=== PATIENT | female | born 1995 | race Hispanic/Latino ===

== ENCOUNTER 2021-05-14 11:08 | Emergency (ER) | payer OTHER ==
[2021-05-14 12:25] LABS: Absolute Lymphocytes (CBC) 1.7 K/uL (0.7-4.9); Basophils % 0.7 % (0-1.3); Hematocrit 37.2 % (36.0-45.0); Lymphocytes % 18.3 % (15.3-44.8); MPV 7.8 fL (7.6-11.3); RBC Red Blood Cell Count 4.13 M/uL (3.86-4.86)
[2021-05-14 12:35] LABS: Urine Blood Negative (Negative); Urine Glucose Negative (Negative); Urine Protein Negative (Negative); Urine Specific Gravity 1.025 (1.005-1.030)
[2021-05-14 12:43] LABS: BUN Blood Urea Nitrogen 8 mg/dL (7-18); Bicarbonate 25 mmol/L (21-32); Glucose Level 90 mg/dL (74-106); HCG, Quantitative < 1 mIU/mL (1-3); Sodium Level 138 mmol/L (136-145)
[2021-05-14 12:48] LABS: Urine Specific Gravity/Preg 1.025 (1.005-1.030)
--- NOTE | 2021-05-14 13:16 | RAD REPORT ---
EXAM DESCRIPTION: US - Transvaginal Study Probe - 05/14/2021 1:00 pm CLINICAL HISTORY: Vaginal bleeding;Pain Pelvic pain. COMPARISON: No comparisons FINDINGS: The uterus is normal in size, shape and echotexture. The uterus measures 9.3 x 5.1 x 4.4 c m. The endometrial stripe measures 11 mm, normal. Both ovaries are normal in size, shape and echotexture. The right ovary measures 2.5 x 1.7 x 17 cm.. The left ovary measures 4.0 x 2.1 x 1.9 cm. No ovarian or parovarian lesions. No adnexal masses. Normal Doppler blood flow was demonstrated to both ovaries. No significant pelvic ascites. IMPRESSION: Unremarkable study.
--- NOTE | 2021-05-14 13:51 | RAD REPORT ---
EXAM DESCRIPTION: CTAbdomen Pelvis W Contrast - 05/14/2021 1:41 pm CLINICAL HISTORY: Abdominal pain. ABD PAIN COMPARISON: No comparisons TECHNIQUE: Biphasic CT imaging of the abdomen and pelvis was performed with 100 ml non-ionic IV cont rast. All CT scans are performed using dose optimization technique as appropriate and may include automated exposure control or mA/KV adjustment according to patient size. FINDINGS: The lung bases are clear. The liver, spleen, pancreas, adrenal glands and kidneys are within normal limits. No bowel obstruction, free air, free fluid or abscess. The appendix is normal. No evidence of signi ficant lymphadenopathy. No suspicious bony findings. IMPRESSION: No acute intra-abdominal or pelvic finding.
--- NOTE | 2021-05-14 14:02 | ER ---
Nurse's Notes [facility] Name: Ashish Jama Age: 25 yrs Sex: Female : 1995 Arrival Date: 05/14/2021 Time: 11:11 Bed 4 Private MD: Diagnosis: Lower abdominal pain, unspecified Presentation: 05/14 11:34 Chief complaint: Patient states: Pelvic pain for about 3 weeks, last night pain became vg1 unbearable with NVD. States on 04/21/21 took a home test and it was positive. Went to PCP and did blood work and was negative. Took another home test and it was also positive. States vaginal bleed, spotting, 05/01/21 until 05/04/21. Denies urinary symptoms. States has been nipple discharge, white color. Coronavirus screen: Vaccine status: Patient reports being unvaccinated. Client denies travel out of the [place] in the last 14 days. Ebola Screen: Patient negative for fever greater than or equal to 101.5 degrees Fahrenheit, and additional compatible Ebola Virus Disease symptoms. Initial Sepsis Screen: Does the patient meet any 2 criteria? No. Patient's initial sepsis screen is negative. Does the patient have a suspected source of infection? No. Patient's initial sepsis screen is negative. Risk Assessment: Do you want to hurt yourself or someone else? Patient reports no desire to harm self or others. Onset of symptoms was April 21, 2021. 11:34 Method Of Arrival: Ambulatory vg1 11:34 Acuity: JAY 3 vg1 Triage Assessment: 11:39 General: Appears in no apparent distress. uncomfortable, Behavior is calm, cooperative. vg1 Pain: Complains of pain in pelvis Pain currently is 4 out of 10 on a pain scale. 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 - Social history:: Smoking status: Patient denies any tobacco usage or history of. Screenin:18 Abuse screen: Denies threats or abuse. Nutritional screening: No deficits noted. jh6 Tuberculosis screening: No symptoms or risk factors identified. Fall Risk None identified. Assessment: 12:15 General: Appears in no apparent distress. comfortable, Behavior is calm, cooperative. jh6 Pain: Complains of pain in suprapubic area Pain does not radiate. Pain currently is 2 out of 10 on a pain scale. Quality of pain is described as crampy, Pain began 2-3 days ago. Is intermittent, Aggravated by increased activity. GI: Abd is soft and non tender Abd is non tender Reports lower abdominal pain. :. 13:20 General: Behavior is calm, cooperative. jh6 13:20 Pain: Denies pain. jh6 13:30 Reassessment: Pt to u/s nad noted and stated no pain. jh6 14:40 Reassessment: No changes from previously documented assessment. jh6 Vital Signs: 11:34 BP 112 / 73; Pulse 90; Resp 16; Temp 97.8; Pulse Ox 100% ; Weight 80.29 kg; Height 5 vg1 ft. 4 in. (162.56 cm); Pain 3/10; 12:39 BP 122 / 64; Pulse 80; Resp 17; Pulse Ox 98% on R/A; jh6 13:15 BP 123 / 70; Pulse 76; Resp 17; Pulse Ox 98% ; jh6 11:34 Body Mass Index 30.38 (80.29 kg, 162.56 cm) vg1 ED Course: 11:11 Patient arrived in ED. ds1 11:39 Triage completed. vg1 11:39 Arm band placed on. vg1 11:52 Gavin Laurent PA is PHCP. jr8 11:52 Ti Flores MD is Attending Physician. jr8 12:00 Call light in reach. Side rails up X 1. jh6 12:01 Park Forbes is Primary Nurse. jh6 12:19 Inserted saline lock: 20 gauge in left antecubital area, using aseptic technique. jh6 12:46 US Transvaginal Study (Probe) Sent. jh6 12:46 Urine --Ancillary (enter results) Sent. jh6 13:00 US Transvaginal Study (Probe) In Process Unspecified. EDMS 13:41 CT Abd/Pelvis - IV Contrast Only In Process Unspecified. EDMS 14:02 No provider procedures requiring assistance completed. IV discontinued. [facility] 14:40 IV discontinued, intact, bleeding controlled, No redness/swelling at site. Pressure 6 dressing applied. Administered Medications: No medications were administered Outcome: 14:01 Discharge ordered by . nora 14:02 Discharged to home 5 14:02 Condition: stable 14:02 Discharge instructions given to patient, Instructed on discharge instructions, follow up and referral plans. medication usage, safety practices, Demonstrated understanding of instructions, follow-up care, medications. 14:43 Patient left the ED. [facility] Signatures: Dispatcher [employer] EDFL [place] ds1 Gavin Laurent PA PA jr8 Kayy Lau, RN RN vg1 Shadia Santamaria RN RN jh5 Park Forbes RN RN jh6 Corrections: (The following items were deleted from the chart) 11:41 11:34 Chief complaint: Patient states: Pelvic pain for about 3 weeks, last night pain vg1 became unbearable with NVD. States on 04/21/21 took a home test and it was positive. Went to PCP and did blood work and was negative. Took another home test and it was also positive. States vaginal bleed, spotting, 05/01/21 until 05/04/21. Denies urinary symptoms. vg1 13:56 13:56 ABO/RH TYPING+BB.LAB.BRZ drawn and sent. [facility] EDFL
--- NOTE | 2021-05-14 14:02 | EDPHYS ---
Physician Documentation [facility] Name: Ashish Jama Age: 25 yrs Sex: Female : 1995 Arrival Date: 05/14/2021 Time: 11:11 Bed 4 Private MD: ED Physician Ti Flores HPI: 05/14 13:19 This 25 yrs old Female presents to ER via Ambulatory with complaints of Pelvic jr8 Pain. 13:19 This is a 25-year-old female patient that presented to the emergency room with jr8 continued lower pelvic pain on the right side. Patient stated that she has taken 2 home test both of which were positive. Had gone to her doctor's office and had blood work drawn for confirmation of which it had returned negative at that time. Patient had dismissed it until she started having pain to the right lower pelvic region. Patient this past May had tubal ligation. But because of the test being positive was concerned that she still may be and have an ectopic or something else going on. Patient came to the emergency room for further evaluation at that time. 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 - Social history:: Smoking status: Patient denies any tobacco usage or history of. ROS: 13:19 Eyes: Negative for injury, pain, redness, and discharge, ENT: Negative for injury, jr8 pain, and discharge, Neck: Negative for injury, pain, and swelling, Cardiovascular: Negative for chest pain, palpitations, and edema, Respiratory: Negative for shortness of breath, cough, wheezing, and pleuritic chest pain, Back: Negative for injury and pain, MS/Extremity: Negative for injury and deformity, Skin: Negative for injury, rash, and discoloration, Neuro: Negative for headache, weakness, numbness, tingling, and seizure. 13:19 Abdomen/GI: Positive for abdominal pain, nausea, vomiting, and diarrhea, Negative for hematemesis, black/tarry stool, rectal pain, rectal bleeding, bowel incontinence, flatulence. Exam: 13:19 Eyes: Pupils equal round and reactive to light, extra-ocular motions intact. Lids and jr8 lashes normal. Conjunctiva and sclera are non-icteric and not injected. Cornea within normal limits. Periorbital areas with no swelling, redness, or edema. ENT: Nares patent. No nasal discharge, no septal abnormalities noted. Tympanic membranes are normal and external auditory canals are clear. Oropharynx with no redness, swelling, or masses, exudates, or evidence of obstruction, uvula midline. Mucous membranes moist. Neck: Trachea midline, no thyromegaly or masses palpated, and no cervical lymphadenopathy. Supple, full range of motion without nuchal rigidity, or vertebral point tenderness. No Meningismus. Cardiovascular: Regular rate and rhythm with a normal S1 and S2. No gallops, murmurs, or rubs. Normal PMI, no JVD. No pulse deficits. Respiratory: Lungs have equal breath sounds bilaterally, clear to auscultation and percussion. No rales, rhonchi or wheezes noted. No increased work of breathing, no retractions or nasal flaring. Back: No spinal tenderness. No costovertebral tenderness. Full range of motion. Skin: Warm, dry with normal turgor. Normal color with no rashes, no lesions, and no evidence of cellulitis. MS/ Extremity: Pulses equal, no cyanosis. Neurovascular intact. Full, normal range of motion. Neuro: Awake and alert, GCS 15, oriented to person, place, time, and situation. Cranial nerves II-XII grossly intact. Motor strength 5/5 in all extremities. Sensory grossly intact. 13:19 Abdomen/GI: Inspection: abdomen appears normal, Bowel sounds: active, all quadrants, Palpation: soft, in all quadrants, moderate abdominal tenderness, in the right lower quadrant, mass, is not appreciated, rebound tenderness, is not appreciated, voluntary guarding, is not appreciated, involuntary guarding, is not appreciated, no appreciated organomegaly, Indicators: McBurney's point is tender, Orellana's sign is negative, Rovsing's sign is negative, Obturator sign is negative, Psoas sign is negative, Liver: tenderness, is not appreciated. Vital Signs: 11:34 BP 112 / 73; Pulse 90; Resp 16; Temp 97.8; Pulse Ox 100% ; Weight 80.29 kg; Height 5 vg1 ft. 4 in. (162.56 cm); Pain 3/10; 12:39 BP 122 / 64; Pulse 80; Resp 17; Pulse Ox 98% on R/A; jh6 13:15 BP 123 / 70; Pulse 76; Resp 17; Pulse Ox 98% ; jh6 11:34 Body Mass Index 30.38 (80.29 kg, 162.56 cm) vg1 MDM: 11:53 Patient medically screened. jr8 13:55 Differential diagnosis: Ectopic , ovarian cyst, uterine fibroid, appendicitis, jr8 colitis, renal colic, PID, pyelonephritis, cystitis, ovarian torsion, TOA. Data reviewed: vital signs, nurses notes, lab test result(s), radiologic studies, CT scan, ultrasound. Data interpreted: Pulse oximetry: on room air is 98 %. Interpretation: normal. Counseling: I had a detailed discussion with the patient and/or guardian regarding: the historical points, exam findings, and any diagnostic results supporting the discharge/admit diagnosis, lab results, radiology results, the need for outpatient follow up, an OB/Gyne specialist, to return to the emergency department if symptoms worsen or persist or if there are any questions or concerns that arise at home. ED course: Discussed with patient that she is not , transvaginal ultrasound did not reveal torsion or any other uterine or ovarian abnormality. CT of the abdomen pelvis with contrast did not show any other acute surgically emergent or other bacterial process. Recommended follow-up with primary care and to treat symptomatically with Tylenol and Motrin for the time being. If patient were to become worse or have other evolving symptoms to come back for further evaluation. Patient did with this at this time.. 05/14 11:53 Order name: Basic Metabolic Panel; Complete Time: 13:18 jr8 05/14 11:53 Order name: CBC with Diff; Complete Time: 12:35 jr8 05/14 11:53 Order name: Quantitative Hcg; Complete Time: 13:18 jr8 05/14 12:34 Order name: Urine Dipstick-Ancillary; Complete Time: 12:36 EDMS 05/14 12:35 Order name: Urine --Ancillary (enter results); Complete Time: 13:18 bd 05/14 11:53 Order name: IV Saline Lock; Complete Time: 12:20 jr8 05/14 11:53 Order name: Labs collected and sent; Complete Time: 12:20 jr8 05/14 11:53 Order name: NPO; Complete Time: 12:20 jr8 05/14 11:53 Order name: Urine Dipstick-Ancillary (obtain specimen); Complete Time: 13:55 jr8 05/14 11:53 Order name: Urine Test (obtain specimen); Complete Time: 13:55 jr8 05/14 12:36 Order name: US Transvaginal Study (Probe); Complete Time: 13:18 jr8 05/14 13:19 Order name: CT Abd/Pelvis - IV Contrast Only; Complete Time: 13:55 jr8 Administered Medications: No medications were administered Disposition Summary: 05/14/21 14:01 Discharge Ordered Location: Home jr8 Problem: new jr8 Symptoms: have improved jr8 Condition: Stable jr8 Diagnosis - Lower abdominal pain, unspecified jr8 Followup: jr8 - With: Private Physician - When: 1 - 2 days - Reason: Recheck today's complaints, Continuance of care, Re-evaluation by your physician Discharge Instructions: - Discharge Summary Sheet jr8 - Abdominal Pain, Adult jr8 Forms: - Medication Reconciliation Form jr8 - Thank You Letter jr8 - Antibiotic Education jr8 - Prescription Opioid Use jr8 Addendum: 05/19/2021 05:31 Co-signature as Attending Physician, Ti Flores MD PA/COMMUNICATIONS DEPARTMENT CHAIR's history reviewed, m a2 patient interviewed, and examined. I agree with assessment and care plan and confirm the diagnosis (es) above. Signatures: Dispatcher [employer] Gavin Crum PA PA jr8 Ti Flores MD MD ma2 Kayy Lau RN RN vg1 Corrections: (The following items were deleted from the chart) 05/14 13:56 11:53 ABO/RH TYPING+BB.LAB.BRZ ordered. EDDE EDMS
[2021-05-14 15:17] VITALS: TEMP 97.8
[2021-05-14 15:18] VITALS: O2SAT 98
[2021-05-14 15:19] VITALS: BP 123/70
== END 2021-05-14 14:43 | disposition home or self-care (01) ==
LOC: ER 11:08
DX: R10.30 Lower abdominal pain, unspecified (principal)
CPT/HCPCS: 85025; 80048; 36415; 81025; 84702; 81003; 74177; 76830; 99283; Q9967